=== PATIENT | female | born 1985 | race Caucasian/White ===

== ENCOUNTER → 2020-05-28 14:10 | Outpatient (BNVA) | payer OTHER, SELFPAY | PROVIDERS: Visit Provider Nurse Practitioner Family | DX: Z11.59 Encounter for screening for other viral diseases (principal) | CPT/HCPCS: 87635 ==

== ENCOUNTER 2022-12-15 19:51 | Emergency (ER) | payer SELFPAY ==
[2022-12-15 19:52] VITALS: BP 114/79; PULSE 90; RESP 16; TEMP 36.5; O2SAT 100; BMI 26.4
--- NOTE | 2022-12-15 20:00 | ED_ITS ---
HPI - Fever General: Chief Complaint: Fever Stated Complaint: Fever for 5 Days Time Seen by Provider: 12/15/22 19:59 History of Present Illness: 37-year-old female comes in today with complaints of fever. Patient reports fever for the last 5 days. Patient reports she has had a dental infection which she was on cephalexin for on Thursday. Says fever started prior but fever continues to be persistent even after the use of antibiotics. Patient appears nontoxic. Patient has no other complaints. Patient denies any other chronic medical problems. Associated symptoms: Reports nausea; Deny chest pain Review of Systems Const: Denies: fever(s) ENMT: Reports: dental pain Card: Denies: chest pain Resp: Denies: dyspnea GI: Reports: nausea Physical Exam Const: COMMON NORMALS: alert HENMT: COMMON NORMALS: normocephalic HEAD & SCALP: normocephalic TEETH & GINGIVA: Yes poor dentition Neck/C-Spine: COMMON NORMALS: full ROM Resp: COMMON NORMALS: normal respiratory effort and clear to auscultation bilaterally AUSCULTATION: clear to auscultation bilaterally Cardio: COMMON NORMALS: regular rate and regular rhythm RATE: regular rate RHYTHM: regular rhythm GI: AUSCULTATION: Yes normoactive bowel sounds PALPATION: No Tenderness to palpation present (GI) : COMMON NORMALS: Yes no CVA tenderness BLADDER/KIDNEY EXAM: Yes no CVA tenderness Back/Pelvis: COMMON NORMALS: no CVA tenderness Extremity: COMMON NORMALS: normal to inspection Neuro: SENSORIUM/ORIENTATION: Yes alert Skin: COMMON NORMALS: no rashes or lesions noted GENERAL SKIN EXAM: no rashes or lesions noted Course Vital Signs: Vital signs: Vital Signs Temperature 97.7 F 12/15/22 19:52 Pulse Rate 90 12/15/22 19:52 Respiratory Rate 16 12/15/22 19:52 Blood Pressure 114/79 12/15/22 19:52 Pulse Oximetry 100 12/15/22 19:52 Oxygen Delivery Me thod Room Air 12/15/22 19:52 MDM - Fever Medical Decision Making 37-year-old female comes in today with persistent fever even after treatment with antibiotic. On exam patient does have some redness and swelling to the gingival tissue along the left upper molar patient has significant tooth decay with loss of teeth at the gumline. Respirations are even lungs are clear to auscultation. No CVA tenderness. Abdomen soft nontender. No sores or lesions noted to the skin. Differential diagnosis includes dental infection, sinusitis, osteomyelitis, viral syndrome. Laboratory values were unremarkable. CBC noted some mild anemia. Sed rate and CRP within normal limits. CT noted dental abscess to left upper molar. Reviewed exam with patient with recommendations for treatment and follow-up. Antibiotic was changed from cephalexin to clindamycin. Recommend dentist for follow-up. Patient reported understanding. Lab Data 12/15/22 20:30 12/15/22 20:[address] 12/15/22 20:06 IMPRESSION: There is disease along a posterior left mandibular molar consistent with dental disease. There is a small associated fluid/abscess. Dental consultation may be of benefit. Laboratory Results WBC 6.5 10^3/uL (4.0-10.0) 12/15/22 20:30 RBC 4.20 10^6/uL (4.1-5.3) 12/15/22 20: Hgb 11.1 g/dL (11.5-15.3) L 12/15/22 20:30 Hct 34.9 % (37.0-47.0) L 12/15/22 20: MCV 83.1 fl (81-99) 12/15/22 20: MCH 26.4 pg (28.0-34.0) L 12/15/22 20: MCHC 31.8 g/dL (30.0-36.0) 12/15/22 20: RDW 14.1 % (12.1-15.1) 12/15/22 20: Plt Count 317 10^3/cmm (130-400) 12/15/22 20: MPV 9.9 fL (7.4-10.4) 12/15/22 20: Neut % (Auto) 55.8 % 12/15/22 20: Lymph % (Auto) 34.0 % 12/15/22 20:30 [place] % (Auto) 8.3 % 12/15/22 20:30 Eos % (Auto) 1.1 % 12/15/22 20:30 Baso % (Auto) 0.6 % 12/15/22 20: Neut # (Auto) 3.62 10^3/uL (1.8-7.7) 12/15/22 20:30 Lymph # (Auto) 2.2 10^3/uL (0.8-4.8) 12/15/22 20:30 [place] # (Auto) 0.5 10^3/uL (0.2-0.9) 12/15/22 20:30 Eos # (Auto) 0.1 10^3/uL (0.0-0.8) 12/15/22 20:30 Baso # (Auto) 0.0 10^3/uL (0.0-0.1) 12/15/22 20:30 Nucleated RBC % (auto) 0 % 12/15/22 20:30 Nucleated RBCs # 0.0 /100WBC 12/15/22 20:30 ESR 13 mm/hr (0-15) 12/15/22 20:30 Sodium 140 mmol/L (136-145) 12/15/22 20:30 Potassium 3.7 mmol/L (3.5-5.1) 12/15/22 20:30 Chloride 105 mmol/L (98-107) 12/15/22 20:30 Carbon Dioxide 22 mmol/L (22-29) 12/15/22 20:30 Anion Gap 16.7 (5-19) 12/15/22 20:30 BUN 9 mg/dL (6-20) 12/15/22 20:30 Creatinine 0.7 mg/dL (0.5-0.9) 12/15/22 20:30 GFR Calculation 94.2 mL/min (90-130) 12/15/22 20:30 Glucose 79 mg/dL (65-115) 12/15/22 20:30 Calculated Osmolality 288 mOsm/kg (285-295) 12/15/22 20:30 Calcium 8.9 mg/dL (8.5-10.5) 12/15/22 20:30 Total Bilirubin 0.2 mg/dL (0.15-1.2) 12/15/22 20:30 AST 15 U/L (0-32) 12/15/22 20:30 ALT 16 U/L (0-33) 12/15/22 20:30 Alkaline Phosphatase 106 U/L (35-105) H 12/15/22 20:30 C-Reactive Protein 3.0 mg/L (0.0-4.9) 12/15/22 20:30 Total Protein 7.4 g/dL (6.6-8.7) 12/15/22 20:30 Albumin 4.3 g/dL (3.5-5.2) 12/15/22 20:30 Globulin 3.1 g/dL (1.3-4.6) 12/15/22 20:30 Discharge Plan Discharge Patient Disposition: Home Clinical Impression: Abscess, dental Condition: Stable Prescriptions: New clindamycin HCl 300 mg capsule 300 mg PO TID 7 Days Qty: 21 0RF Discharge Orders: Discharge ED (Routine); Ordered 12/15/22 Ordered By: Justyn Najera Discharge Diet: Usual diet Discharge Activity: Increase activity as tolerated Patient Instructions: Dental Abscess (ED) Activity Restrictions/Additional Instructions: Take antibiotic as directed. Follow-up with dentist for definitive care. Return to ED for new concerns. Coding Level of Care Code ED Women'S Garment Fitter for Clara Anderson
--- NOTE | 2022-12-15 20:06 | CTR_ITS ---
PROCEDURE INFORMATION: Exam: CT Maxillofacial Without Contrast Exam date and time: 12/15/2022 8:32 PM Age: 37 years old Clinical indication: Face pain; Additional info: Mid face pain, high fever, poor dentition TECHNIQUE: Imaging protocol: Computed tomography of the face without contrast. Radiation optimization: All CT scans at this facility use at least one of these dose optimization techniques: automated exposure control; mA and/or kV adjustment per patient size (includes targeted exams where dose is matched to clinical indication); or iterative reconstruction. REPORTING DATA: Count of CT and Cardiac NM exams in prior 12 months: This patient has received 0 known CTs and 0 known cardiac nuclear medicine studies in the 12 months prior to the current study. COMPARISON: No relevant prior studies available. RADIATION DOSE METRICS: Total DLP (mGy-cm): 383.38 FINDINGS: Orbital cavities: Orbits are normal. Globes are unremarkable. Bones/joints: No acute fracture. Paranasal sinuses: Normal. No air-fluid levels. Soft tissues: See Dental finding. Dental: There appears to be dental disease along what is likely lower left mandibular teeth #18. There is a small amount of fluid measuring 1.3 x 0.4 cm along the left you cm muscle on series 8, image 9. CT/CT sinus wo con* [id number] IMPRESSION: There is disease along a posterior left mandibular molar consistent with dental disease. There is a small associated fluid/abscess. Dental consultation may be of benefit.
[2022-12-15 20:43] LABS: Erythrocyte Sedimentation Rate 13 mm/hr (0-15)
[2022-12-15 20:45] LABS: Basophils % 0.6 %; Eosinophils # 0.1 10^3/uL (0.0-0.8); Eosinophils % 1.1 %; Hematocrit 34.9 % (37.0-47.0); Hemoglobin 11.1 g/dL (11.5-15.3); Lymphocytes # 2.2 10^3/uL (0.8-4.8); Mean Corpuscular HGB Conc 31.8 g/dL (30.0-36.0); Mean Corpuscular Hemoglobin 26.4 pg (28.0-34.0); Mean Corpuscular Volume 83.1 fl (81-99); Mean Platelet Volume 9.9 fL (7.4-10.4); Monocytes # 0.5 10^3/uL (0.2-0.9); Monocytes % 8.3 %; Neutrophils # 3.62 10^3/uL (1.8-7.7); Neutrophils % 55.8 %; Nucleated Red Blood Cells % 0 %; Platelet Count 317 10^3/cmm (130-400); Red Cell Distribution Width 14.1 % (12.1-15.1); White Blood Count 6.5 10^3/uL (4.0-10.0)
[2022-12-15] MEDS: clindamycin 600 MG/50 ML PREMIX 100 MG IV (20:46)
[2022-12-15] MEDS: sodium chloride 0.9% 500 ML 999 ML IV (20:46)
[2022-12-15 21:03] LABS: Alanine Aminotransferase 16 U/L (0-33); Albumin Level 4.3 g/dL (3.5-5.2); Alkaline Phosphatase 106 U/L (35-105); Anion Gap 16.7 (5-19); Aspartate Amino Transferase 15 U/L (0-32); Blood Urea Nitrogen 9 mg/dL (6-20); Calcium 8.9 mg/dL (8.5-10.5); Carbon Dioxide 22 mmol/L (22-29); Chloride 105 mmol/L (98-107); Globulin 3.1 g/dL (1.3-4.6); Glomerular Filtration Rate 94.2 mL/min (90-130); Glucose 79 mg/dL (65-115); Osmolality Calculated 288 mOsm/kg (285-295); Potassium 3.7 mmol/L (3.5-5.1); Sodium 140 mmol/L (136-145); Total Bilirubin 0.2 mg/dL (0.15-1.2); Total Protein 7.4 g/dL (6.6-8.7)
[2022-12-15 22:13] VITALS: BP 100/68; PULSE 70; O2SAT 98
--- NOTE | 2022-12-17 15:14 | DCPLANNER ---
patient services manager called patient due to no primary care physician - no answer at this time.
== END 2022-12-15 22:14 | disposition home or self-care (01) ==
PROVIDERS: Emergency Provider Nurse Practitioner Family
DX: K04.7 Periapical abscess without sinus (principal)
CPT/HCPCS: 70486; 80053; 85025; 85651; 86140; 96365; 99285; J3490; J7030

== ENCOUNTER 2023-11-15 13:30 | Emergency (ER) | payer SELFPAY ==
[2023-11-15 13:31] VITALS: BP 122/74; PULSE 87; RESP 17; TEMP 36.9; O2SAT 99; BMI 27.3
--- NOTE | 2023-11-15 13:49 | W.ED.DENTAL ---
HPI - Dental/Oral General: Chief complaint: Dental/Oral Stated complaint: mouth pain Time Seen by Provider: 11/15/23 13:42 Source: patient Mode of arrival: ambulatory Limitations: no limitations History of Present Illness: Patient is a 38-year-old female presents to ED today with complaint of dental infection/pain. Patient states she has multiple teeth that need extracted. She has been having pain to her left lower wisdom teeth for several weeks. She has been taking 875 mg amoxicillin twice daily x 2 weeks but feels like symptoms are not improving. She states she is having trouble sleeping and eating secondary to pain. Patient states she has saved up money to see a dentist and has a plan tomorrow to begin calling to try to schedule an appointment somewhere. She feels like the left side of her face is swollen. She is controlling secretions and swallowing normally. No complaints of difficulty breathing. Teeth map: 1. Onset (ago): week(s) Duration: constant Severity: severe Severity scale (1-10): 10 Relieving factors: nothing Exacerbating factors: nothing Context: history of dental caries and poor dental care Associated symptoms: Denies fever(s) or odynophagia Treatment prior to arrival: oral analgesic Review of Systems Const: Denies: fever(s), chills, body aches, fatigue or malaise ENMT: Reports: dental pain; Denies: throat pain, enlarged tonsils, odynophagia, swelling of lips/tongue, oral sores or nasal discharge Card: Denies: chest pain Resp: Denies: dyspnea GI: Denies: nausea or vomiting Musc: Denies: neck pain Neuro: Denies: headache(s) Physical Exam Const: COMMON NORMALS: no acute distress, average body habitus, patient oriented x3, no limitations, healthy appearing, alert and well nourished HENMT: FACE & SINUS: normal facial exam and other (very mild edema long mandibular line; no submandibular involvement) MOUTH: Normal oral and palatal mucosa present and lip normal TEETH & GINGIVA: Yes caries, Yes poor dentition and Yes other (severe widespread periodontic disease) THROAT: posterior oropharynx normal and tonsils normal Neck/C-Spine: COMMON NORMALS: full ROM and no lymphadenopathy GENERAL: Yes normal visual inspection, No anterior neck swelling and No submandibular swelling Resp: COMMON NORMALS: normal respiratory effort Cardio: COMMON NORMALS: regular rate and regular rhythm RATE: regular rate RHYTHM: regular rhythm Neuro: COMMON NORMALS: patient oriented x3 SENSORIUM/ORIENTATION: Yes alert Course Vital Signs: Vital signs: Vital Signs Temperature 98.5 F 11/15/23 13:31 Pulse Rate 87 11/15/23 13:31 Respiratory Rate 17 11/15/23 13:31 Blood Pressure 122/74 11/15/23 13:31 Pulse Oximetry 99 11/15/23 13:31 Oxygen Delivery Me thod Room Air 11/15/23 13:31 MDM - Dental/Oral Medical Decision Making Patient will be switched to clindamycin. Will give her Peridex rinses. Will prescribe a small amount of pain medication. She was given dental resources. She states she has plans tomorrow to begin calling facilities to try and get seen that she has saved up enough money. Return to ED precautions given. Medical Records I reviewed the patient's medical records. No radiology studies performed this visit Discharge Plan Discharge Patient Disposition: Home Clinical Impression: Dental caries, Toothache Condition: Stable Prescriptions: New clindamycin HCl 300 mg capsule 300 mg PO Q6H 7 Days Qty: 28 0RF hydrocodone-acetaminophen 5-325 mg tablet 1 tab PO Q6H PRN (Reason: pain) Qty: 14 0RF Peridex 0.12 % mouthwash 15 ml buccal BID Qty: 473 0RF Rx Instructions: Swish in mouth 1-2 minutes then spit. Use twice daily. No Action acetaminophen 325 mg Tablet 650 mg PO QID PRN (Reason: Pain) amoxicillin 875 mg Tablet 875 mg PO BID ibuprofen 200 mg Tablet 800 mg PO Q6H PRN (Reason: Pain) Discharge Orders: Discharge ED (Routine); Ordered 11/15/23 Ordered By: Katheryn Carmona Coding Level of Care Code ED Medical Staff Credentialing Coordinator for Clara Anderson
== END 2023-11-15 14:34 | disposition home or self-care (01) ==
PROVIDERS: Emergency Provider Physician Assistant
DX: K02.9 Dental caries, unspecified (principal); K08.89 Other specified disorders of teeth and supporting structures
CPT/HCPCS: 99284

== ENCOUNTER 2024-06-21 09:33 | Emergency (ER) | payer SELFPAY ==
[2024-06-21 09:57] VITALS: BP 124/64; PULSE 79; RESP 18; TEMP 36.7; O2SAT 100
--- NOTE | 2024-06-21 10:03 | US_ITS ---
WS: [id number] ULTRASOUND SOFT TISSUES LEFT inguinal region. HISTORY: L groin/mass COMPARISON: None available. TECHNIQUE: 2-D and color Doppler imaging is submitted. There is a soft tissue mass in the LEFT inguinal region which is abnormal. Center of the mass is slig htly ovoid and fluid-filled with through transmission. There is a thick wall surrounding the mass whi ch extends towards the inguinal region. The entire mass measures 3.6 x 2.0 x 2.2 cm. There is no incr eased vascularity. US/US soft tissue/extremity 27400 IMPRESSION: Cystic mass with mild wall thickening in the LEFT groin corresponds to the palp able abnormality. This is nonspecific but should be evaluated additionally. Dif ferential includes inguinal hernia containing entrapped fluid, abnormal lymph n ode. If there is any history of recent catheterization resolving hematoma or th rombosed pseudoaneurysm would be within the differential. The most helpful imag ing at this time would be CT abdomen and pelvis with IV contrast.
--- NOTE | 2024-06-21 10:04 | ED_ITS ---
HPI - Extremity Problem General: Chief complaint: Extremity Problem,Nontraumatic Stated complaint: discomfort left groin massive lump Time Seen by Provider: 06/21/24 09:34 Source: patient Mode of arrival: ambulatory Limitations: no limitations History of Present Illness: Patient is a 39-year-old female presents to ED today with a complaint of a lump in her groin . Patient states she has noticed a swollen area for approximately 6 to 7 months. Patient states recently her had a seizure and she went to catch him and lowered him to the ground and feels like following this, the area has enlarged and has become painful. She feels like pain is worse with certain movements and positions. She is passing gas and stool normally. She has not noticed any overlying skin changes to the area. Patient is very tearful and fearful of what this could be stating she has a lot on her plate right now with her 's health conditions. MD Complaint: other (L groin pain/swelling) Onset (ago): month(s) Pain Consistency: intermittent Location: left Radiation: none Relieving factors: nothing Exacerbating factors: palpation and other (movement) Associated symptoms: Reports no associated symptoms; Deny chest pain, fever(s) or rash Related Data Previous Rx's Medication Instructions Recorded clindamycin HCl 300 mg capsule 300 mg PO Q6H 7 days #28 caps 06/21/24 Allergies Allergy/AdvReac Type Severity Reaction Status Date / Time nalbuphine [From Nubain] Allergy Mild anxiety Verified 11/15/23 13:35 Review of Systems Const: Denies: fever(s), chills, body aches, fatigue or malaise Card: Denies: chest pain Resp: Denies: dyspnea GI: Reports: other (L groin pain/ lump ); Denies: abdominal pain, nausea, vomiting or diarrhea : Denies: flank pain, difficulty voiding, dysuria, urinary frequency, urinary urgency or urinary hesitancy Musc: Denies: neck pain, back pain, extremity pain, extremity swelling, joint pain or joint swelling Skin/Breast: Denies: rash Neuro: Denies: headache(s), numbness in extremities, weakness in extremities, sensory changes or difficulty walking Physical Exam Const: COMMON NORMALS: no acute distress, average body habitus, patient oriented x3, no limitations, healthy appearing, alert and well nourished GENERAL APPEARANCE: cooperative Resp: COMMON NORMALS: normal respiratory effort and clear to auscultation bilaterally AUSCULTATION: clear to auscultation bilaterally Cardio: COMMON NORMALS: regular rate and regular rhythm RATE: regular rate RHYTHM: regular rhythm GI: COMMON NORMALS: Normal to inspection, nondistended, normoactive bowel sounds present, Soft to palpation, non-tender, No hepatosplenomegaly present and no masses PALPATION: Yes Soft to palpation and Yes No hepatosplenomegaly present OTHER: lump palpated in L groin; no overlying skin changes; this does not overly feel like a lymph node as it feels about 2-3cm in size; does not appear to change with straining/valsalva; not reducible; somewhat tender to palpation : COMMON NORMALS: Yes no CVA tenderness BLADDER/KIDNEY EXAM: Yes no CVA tenderness Back/Pelvis: COMMON NORMALS: no CVA tenderness and thoracic and lumbar spine normal to inspection Extremity: GENERAL: Yes normal exam except as noted Neuro: COMMON NORMALS: patient oriented x3, moves all extremities, no focal motor deficits, no sensory deficits noted and gait normal SENSORIUM/ORIENTATION: Yes alert Skin: COMMON NORMALS: no rashes or lesions noted GENERAL SKIN EXAM: no rashes or lesions noted Course Vital Signs: Vital signs: Vital Signs Temperature 98.1 F 06/21/24 09:57 Pulse Rate 79 06/21/24 09:57 Respiratory Rate 18 06/21/24 09:57 Blood Pressure 124/64 06/21/24 09:57 Pulse Oximetry 100 06/21/24 09:57 Oxygen Delivery Me thod Room Air 06/21/24 09:57 MDM - Extremity (Nontraumatic) Medical Decision Making Patient here for left groin mass over the past 6 to 7 months. Feels like it got larger recently after she was lifting her . Clinically does not overly feel like a hernia or a lymph node. Ultrasound imaging showing a cystic mass measuring 3.6 x 2.0 x 2.2 cm with no increased vascularity. DDx includes inguinal hernia containing entrapped fluid, abnormal lymph node, other nonspecific etiologies. Recommend further evaluation with CT abdomen pelvis with IV contrast. This does not have to be done emergently given the timeframe of her symptoms. She has no overlying skin changes. Vital signs are stable. She is passing stool and gas. Will refer her to general surgery for further evaluation. At the end of our visit, she is asking for antibiotics regarding a possible dental infection. She has widespread dental decay. She states she is in the process of applying for a program for free dental extractions and d entures. She is not having any facial swelling. No fevers. No trouble eating, drinking, speaking, controlling secretions. Medical Records I reviewed the patient's medical records. Lab Data Radiology Impressions Soft Tissue Ultrasound 06/21/24 10:03 IMPRESSION: Cystic mass with mild wall thickening in the LEFT groin corresponds to the palpable abnormality. This is nonspecific but should be evaluated additionally. Differential includes inguinal hernia containing entrapped fluid, abnormal lymph node. If there is any history of recent catheterization resolving hematoma or thrombosed pseudoaneurysm would be within the differential. The most helpful imaging at this time would be CT abdomen and pelvis with IV contrast. All radiology interpretation(s) finalized by discharge Discharge Plan Discharge Patient Disposition: Home Clinical Impression: Left groin mass, Dental caries Condition: Stable Prescriptions: New clindamycin HCl 300 mg capsule 300 mg PO Q6H 7 Days Qty: 28 0RF Discharge Orders: Discharge ED (Routine); Ordered 06/21/24 Ordered By: Katheryn Carmona Activity Restrictions/Additional Instructions: As we discussed, I will have case management refer you to general surgery for f urther evaluation of your left inguinal groin mass. Coding Level of Care Code ED Manager Of Production for Clara Anderson
--- NOTE | 2024-06-21 10:24 | PC.PHAR ---
Pt states takes no current medications
--- NOTE | 2024-06-23 09:25 | DCPLANNER ---
messaged gen surg for er f/u
== END 2024-06-21 11:48 | disposition home or self-care (01) ==
PROVIDERS: Emergency Provider Physician Assistant
DX: R19.09 Other intra-abdominal and pelvic swelling, mass and lump (principal); K02.9 Dental caries, unspecified
CPT/HCPCS: 76882; 99284

== ENCOUNTER 2025-01-17 19:35 | Emergency (ER) | payer SELFPAY ==
[2025-01-17 19:48] VITALS: BP 124/68; PULSE 89; RESP 17; TEMP 37.2; O2SAT 99; BMI 26.4
--- NOTE | 2025-01-17 20:10 | W.ED.DENTAL ---
HPI - Dental/Oral General: Chief complaint: Dental/Oral Stated complaint: Mouth Infection Time Seen by Provider: 01/17/25 19:55 Source: patient Mode of arrival: ambulatory Limitations: no limitations History of Present Illness: 39yo female presents with worsening dental infection. Patient reports she has had bad teeth for a while, but has not been able to have her teeth taken care of due to illness in her family. Patient states she has been having increased pain on the left upper and lower jaw area. States that she does have some swelling as well. Reports that she has had vomiting associated with the dental pain. Patient denies fever, difficulty swallowing, painful tongue movements, any other concern at this time. Associated symptoms: Denies fever(s) Related Data Previous Rx's ?Medication ?Instructions ?Recorded amoxicillin 875 mg-potassium 1 tab PO BID #14 tabs 01/17/25 clavulanate 125 mg tablet ketorolac 10 mg tablet 10 mg PO Q6H 5 days #20 tabs 01/17/25 Allergies Allergy/AdvReac Type Severity Reaction Status Date / Time nalbuphine (From Nubain) Allergy Mild anxiety Verified 11/15/23 13:35 Review of Systems Const: Denies: fever(s), chills or body aches ENMT: Reports: dental pain; Denies: ear discharge Card: Denies: chest pain Resp: Denies: dyspnea Physical Exam Const: COMMON NORMALS: no acute distress, patient oriented x3 and alert GENERAL APPEARANCE: cooperative ORIENTATION/CONSCIOUSNESS: Yes awake OTHER: Patient is ambulatory to [facility] with no difficulty. She is interactive with exam appropriately. She is in no acute distress. No family is at bedside. HENMT: COMMON NORMALS: normocephalic and atraumatic HEAD & SCALP: normocephalic and atraumatic MOUTH: tongue normal, malodorous breath and other (tenderness to palpation left maxilla and mandible. No trismus); lip not abnormal, no mouth trauma and no muffled voice TEETH & GINGIVA: Yes abnormal tooth and associated gingiva (dental decay throughout) and Yes poor dentition Chest: CHEST: Yes Symmetrical chest wall rise Resp: COMMON NORMALS: normal respiratory effort EFFORT & INSPECTION: Yes able to speak in complete sentences Extremity: COMMON NORMALS: full ROM Neuro: COMMON NORMALS: patient oriented x3 SENSORIUM/ORIENTATION: Yes alert Psych: COMMON NORMALS: cooperative Course Vital Signs: Vital signs: Vital Signs Temperature 99.0 F 01/17/25 19:48 Pulse Rate 89 01/17/25 19:48 Respiratory Rate 17 01/17/25 19:48 Blood Pressure 124/68 01/17/25 19:48 Pulse Oximetry 99 01/17/25 19:48 Oxygen Delivery Me thod Room Air 01/17/25 19:48 MDM - Dental/Oral Medical Decision Making 39yo female presents with worsening dental infection. Patient reports she has had bad teeth for a while, but has not been able to have her teeth taken care of due to illness in her family. Patient is nontoxic in appearance. Vital signs are stable. No indication of Ludewig's. No abscess visualized. Discussed with patient we would begin antibiotics today, but she does need to see a dentist for definitive care of her decayed teeth. Patient did receive ketorolac and Augmentin while in the emergency department. Prescriptions of both were sent to patient's pharmacy. Recommend she follow-up with a dentist as soon as possible. Return precautions provided. Patient states understanding and has no further questions or concerns at this time. Differential Diagnosis Likely dental caries, toothache and dental abscess Medical Records I reviewed the patient's medical records. No radiology studies performed this visit Discharge Plan Discharge Patient Disposition: Home Clinical Impression: Dental infection, Poor dentition Condition: Stable Prescriptions: New amoxicillin-pot clavulanate 875-125 mg tablet 1 tab PO BID Qty: 14 0RF ketorolac 10 mg tablet 10 mg PO Q6H 5 Days Qty: 20 0RF Discharge Orders: Discharge ED (Routine); Ordered 01/17/25 Ordered By: Vladimir Simms Patient Instructions: Dental Abscess (ED), Toothache (ED), Pain Management Activity Restrictions/Additional Instructions: Augmentin and ketorolac have been prescribed today. Please take the antibiotic (Augmentin) to completion. Do not take ibuprofen or naproxen while taking ketorolac. Salt water rinses may help some with the dental pain Please see a dentist as soon as possible for definitive care of your dental issues Return to the emergency department if any rapid worsening symptoms, difficulty swallowing, painful tongue movements, and as needed Print Language: Occitan Coding Level of Care Code ED Sr. Unix System Administrator for Clara Anderson
[2025-01-17] MEDS: amoxicillin-clav 875-125 mg Tablet 1 TAB PO (20:27)
[2025-01-17] MEDS: ketorolac 60 mg/2 mL INJ IM (20:27)
[2025-01-17 21:19] VITALS: BP 127/71; PULSE 86; RESP 17; TEMP 37.2; O2SAT 97
== END 2025-01-17 20:45 | disposition home or self-care (01) ==
PROVIDERS: Emergency Provider Nurse Practitioner
DX: K04.7 Periapical abscess without sinus (principal); K08.89 Other specified disorders of teeth and supporting structures
CPT/HCPCS: 96372; 99284; J1885; J9999